=== PATIENT | female | born 1965 | race Caucasian/White ===

== ENCOUNTER 2016-10-10 05:59 | Inpatient (IN) | payer OTHER ==
[2016-09-24 08:59] VITALS: BMI 24.0
--- NOTE | 2016-09-24 09:25 | PAT Medication Instructions ---
Service Date Sep 24, 2016. Current Home Medication List Cholecalciferol (Vitamin D), 1,000 INTER.UNIT PO QPM Levothyroxine Sodium (Synthroid), 125 MCG PO QAM Medication Instructions For Your Scheduled Surgery - Take the following medications the morning of surgery with a sip of water: Levothyroxine Sodium (Synthroid), 125 MCG PO QAM - Take the following medications as scheduled the night before surgery: Cholecalciferol (Vitamin D), 1,000 INTER.UNIT PO QPM If you have any questions please call us at [phone] or [phone] ( Kimmie) or [phone]
[2016-09-24 09:52] LABS: BASO % 0.3 %; BASO ABS # 0.03 K/uL (0-0.2); COMPLETE YES; EOS % 0.5 %; IG% 0.2 %; LYMPH % 21.6 %; LYMPH ABS # 2.13 K/uL (1.2-3.4); MEAN CELL VOLUME 94.2 fL (80-100); MEAN CORPUSCULAR HEMOGLOBIN 32.8 pg (25-34); MEAN CORPUSCULAR HGB CONC 34.8 g/dl (32-36); MEAN PLATELET VOLUME 10.5 fL (7.4-10.4); MONO % 7.1 %; NEUT % 70.3 %; PLATELET COUNT 258 K/uL (130-400); RED BLOOD COUNT 4.67 M/uL (4.2-5.4); WHITE BLOOD COUNT 9.86 K/uL (4.8-10.8)
[2016-09-24 09:56] LABS: URINE APPEARANCE CLEAR (CLEAR); URINE BILIRUBIN NEG (NEG); URINE COLOR YELLOW; URINE NITRITE NEG (NEG); URINE PH 5.5 (4.5-7.5); URINE SPECIFIC GRAVITY 1.008 (1.000-1.030); UROBILINOGEN NEG (NEG)
[2016-09-24 10:25] LABS: MANUAL MICROSCOPIC REQUIRED? NO; REVIEW REQ? NO
[2016-09-24 10:31] LABS: BUN/CREATININE RATIO 18.3 (10-20); POTASSIUM 4.6 mmol/L (3.5-5.1)
[2016-09-24 10:35] LABS: CALCIUM 9.5 mg/dl (8.5-10.1)
--- NOTE | 2016-09-24 10:42 | DIAGNOSTIC IMAGING REPORT ---
CHEST PREADMISSION(PA/LAT) CLINICAL HISTORY: Preoperative evaluation. COMPARISON STUDY: Chest radiograph August 15, 2014. FINDINGS: There are cholecystectomy clips. No pneumothorax or pleural effusion is present. Cardiac size is normal. Mediastinal contours are normal. There is no evidence of pulmonary edema. No consolidation is present. IMPRESSION: No acute cardiopulmonary findings. Electronically signed by: Bennett Mckinley M.D. 09/24/2016 10:39 AM Dictated Date/Time: 09/24/2016 10:39 AM
[~2016-10-10] VITALS: Ht 160 cm; Wt 62.4 kg
[2016-10-10] VITALS (17 sets, daily range): BP systolic 108–129; BP diastolic 46–78; PULSE 48–74; TEMP 36.5–36.7; O2SAT 96–100; Ht 160 cm; Wt 62.4 kg
[~2016-10-10 05:59] MED LIST: CHOL100010 PO; SYN125 PO
[2016-10-10] MEDS ORDERED: CEFAZOLIN 1000MG/55 ML D5W IV SCH (06:00)
[2016-10-10] MEDS ORDERED: LACTATED RINGER'S 1000ML 1,000 ML IV SCH ×2 (06:00)
[2016-10-10] MEDS ORDERED: FENTANYL CITRATE INJ 50 MCG/1 ML 2 ML VIAL ONE ×2 (06:40→07:56)
[2016-10-10] MEDS ORDERED: MIDAZOLAM HCL 1 MG/ML 2ML VIAL ONE (06:40)
[2016-10-10] MEDS ORDERED: BACITRACIN 50000 UNIT VIAL ONE (06:54)
[2016-10-10] MEDS ORDERED: SODIUM CHLORIDE 0.9% PF 50 ML VIAL ONE (06:54)
--- NOTE | 2016-10-10 07:25 | History & Physical Bridge Note ---
H&P Re-Evaluation Bridge Note: I have examined the patient, reviewed the History & Physical and in the interval since the performance of the History & Physical I have noted the following changes of clinical significance: No changes noted
--- NOTE | 2016-10-10 07:27 | History and Physical ---
History & Physical Date October 10, 2016. Chief Complaint neck and arm pain History of Present Illness The patient is a 51 year old female with complaints of Past Medical/Surgical History Medical Problems: (1) Kidney stone (2) Thyroid disorder (3) Vertigo Additional History Hepatic Disease: No Endocrine Disorder: No Kidney Disease: No Hypertension: No Heart Disease: No Bleeding Tendencies: No Infectious Diseases: No Allergies Coded Allergies: Codeine (Unverified Allergy, Unknown, NAUSEA AND VOMITING, 10/10/16) Sulfa Antibiotics (Unverified Allergy, Unknown, SKIN CRAWLS, 10/10/16) Home Medications Scheduled Cholecalciferol (Vitamin D), 1,000 INTER.UNIT PO QPM Levothyroxine Sodium (Synthroid), 125 MCG PO QAM Physical Examination Skin: warm/dry, no rash Eyes: normal inspection, EOMI, sclerae normal ENT: normal ENT inspection, pharynx normal Head: normocephalic, atraumatic Neck: supple, no adenopathy, trachea midline Respiratory/Chest: lungs clear, normal breath sounds, no respiratory distress Cardiovascular: regular rate, rhythm, no edema, no murmur Abdomen / GI: normal bowel sounds, non tender Back: normal inspection Extremities: normal inspection, normal range of motion Neurologic/Psych: no motor/sensory deficits, alert, normal reflexes, oriented x 3 Diagnosis cervical stenosis with radiculopathy Plan of Treatment anterior discectomy and fusion C6-7
[2016-10-10] MEDS ORDERED: HYDROmorphone INJ 2 MG/ML SYR/VIAL ONE (07:57)
[2016-10-10] MEDS ORDERED: HYDROmorphone INJ 1 MG/ML SYR IV PRN ×2 (08:15→08:45)
[2016-10-10] MEDS ORDERED: ONDANSETRON INJ 2 MG/ML 2 ML VIAL IV PRN ×2 (08:15→08:45)
[2016-10-10] MEDS ORDERED: FENTANYL CITRATE INJ 50 MCG/1 ML 2 ML VIAL IV PRN (08:15)
[2016-10-10] MEDS ORDERED: MEPERIDINE HCL 25 MG/ML CARP IV PRN (08:15)
[2016-10-10] MEDS ORDERED: ATROPINE SULFATE 0.1 MG/ML 5ML SYR IV PRN (08:15)
[2016-10-10] MEDS ORDERED: EpHEDrine SULFATE INJ 50 MG/ML AMP IV PRN (08:15)
[2016-10-10] MEDS ORDERED: LABETALOL HCL IV 5 MG/ML 20ML IV PRN (08:15)
[2016-10-10] MEDS ORDERED: DEXAMETHASONE SOD INJ 4 MG/ML VIAL ONE (08:32)
[2016-10-10] MEDS ORDERED: LIDOCAINE HCL 2% 2 ML VIAL (20MG/ML) ONE (08:32)
[2016-10-10] MEDS ORDERED: PROPOFOL IV EMULSION 10 MG/ML 20 ML VIAL IV ONE (08:32)
[2016-10-10] MEDS ORDERED: NEOSTIGMINE METHYLSULFATE 1 MG/ML 10ML VIAL ONE (08:32)
[2016-10-10] MEDS ORDERED: ROCURONIUM BROMIDE 10 MG/ML 5 ML VIAL ONE (08:32)
[2016-10-10] MEDS ORDERED: ONDANSETRON INJ 2 MG/ML 2 ML VIAL ONE (08:32)
[2016-10-10] MEDS ORDERED: EpHEDrine SULFATE 50MG/5ML SYR ONE (08:32)
[2016-10-10] MEDS ORDERED: GLYCOPYRROLATE INJ 0.2 MG/ML VIAL ONE (08:32)
[2016-10-10] MEDS ORDERED: FLOSEAL HEMOSTATIC MATRIX 5ML TOP ONE (08:37)
--- NOTE | 2016-10-10 08:42 | [facility] Post Operative Brief Note ---
Immediate Operative Summary Operative Date October 10, 2016. Pre-Operative Diagnosis cervical stenosis with radiculopathy Post-Operative Diagnosis cervical stenosis with radiculopathy Procedure(s) Performed C6-C7 Anterior Cervical Discectomy and Fusion; Removal of Intervertebral Disc / Decompression; Placement of Prosthetic Spacer / Allograft, Anterior Plate and Screw Fixation Surgeon Dr. Darrell Sarmiento Product Safety Engineer Surgeon(s) Humberto Dunbar PA-C Estimated Blood Loss 5ML Findings stenosis Specimens None
[2016-10-10] MEDS ORDERED: MAGNESIUM HYDROXIDE SUSP 30 ML UDC PO PRN (08:45)
[2016-10-10] MEDS ORDERED: DiphenhydrAMINE HCL 50 MG/ML VIAL IV PRN (08:45)
[2016-10-10] MEDS ORDERED: OXYCODONE HCL IR 5 MG TAB (IMMEDIATE RELEASE) PO PRN (08:45)
[2016-10-10] MEDS ORDERED: LORAZEPAM INJ 0.5 MG in SYRINGE 0.75 ML IV PRN (08:45)
[2016-10-10] MEDS ORDERED: DO NOT ADMINISTER FLU VACCINE PRN ×3 (08:45)
[2016-10-10] MEDS ORDERED: ACETAMINOPHEN IV 1,000 MG in EMPTY BAG 0 ML IV PRN (08:45)
[2016-10-10] MEDS ORDERED: NALOXONE HCL 0.4 MG/1 ML VIAL/CARP IV PRN (08:45)
[2016-10-10] MEDS ORDERED: RACEPINEPHRINE 2.25% NEBU SOLN 0.5 ML VIAL INH PRN (08:45)
[2016-10-10] MEDS ORDERED: DO NOT ADMINISTER PNEUMOCOCCAL VACCINE PRN ×2 (08:45)
[2016-10-10] MEDS ORDERED: DEXAMETHASONE INJ 8 MG in SYRINGE 0 ML IV PRN (08:45)
[2016-10-10] MEDS ORDERED: LORAZEPAM 0.5 MG TAB PO PRN (08:45)
--- NOTE | 2016-10-10 09:38 | Anesthesiology Progress Note ---
Anesthesia Post Op Note Date & Time October 10, 2016 at 09:37 Vital Signs Pain Intensity: 0 Vital Signs Past 12 Hours Date Time Temp Pulse Resp B/P Pulse Ox O2 Delivery O2 Flow Rate FiO2 10/10/16 09:30 68 14 118/63 100 Nasal Cannula 3 10/10/16 09:20 53 14 112/62 100 Mask 5 10/10/16 09:10 54 14 111/60 100 Mask 5 10/10/16 09:00 68 14 124/62 100 Mask 5 10/10/16 08:52 36.4 77 14 108/63 98 Mask 5 10/10/16 06:25 36.6 62 18 124/46 97 Room Air
--- NOTE | 2016-10-10 10:31 | OPERATIVE REPORT ---
DATE OF OPERATION: 10/10/2016 PREOPERATIVE DIAGNOSES: Cervical spinal stenosis, herniated nucleus pulposus, C6-C7. POSTOPERATIVE DIAGNOSES: Same. PROCEDURES PERFORMED: 1. Anterior cervical discectomy, bilateral foraminotomy C6-C7. 2. Anterior cervical arthrodesis, C6-C7. 3. Anterior cervical placement of cortical allograft filled with Progenix 8 mm in height at C6-C7. 4. Application of Gould plate and screws across C6-C7. SURGEON: Dr. Darrell Sarmiento. X RAY EQUIPMENT TESTER: SUSANNE Galeano. Due to the complex nature of the procedure, the entire surgery was performed with the orthodontic technician assistant of SUSANNE Galeano.? The library serials assistant, under direct supervision, was involved in the actual performance of all aspects of the surgical procedure including hemostasis, tissue retraction and incision, instrument management, patient positioning, and wound closure. ANESTHESIA: General. DISPOSITION: The patient awakened and taken to PACU in stable condition. HISTORY OF PATIENT'S PROBLEMS: This is a 51-year-old female who presents with above-mentioned diagnosis. After failing an extensive course of nonoperative care, elected to undergo the above-mentioned procedure. Risks, benefits, pros, cons, and alternatives were outlined in detail preoperatively. DESCRIPTION OF PROCEDURE: The patient was met with preoperatively, the case discussed and all questions were addressed. At that point the patient was taken back to operative suite and after undergoing successful general intubation by the department of anesthesia was placed in the supine position on Spenser table with head in the Andino cloth bale header. All bony prominences were well padded and the eyes were inspected to ensure there was no external pressure placed upon them. At this point the anterior cervical spine was prepped and draped in normal sterile fashion. With the assistance of fluoroscopy, we identified the C6-C7 disc space and transverse incision was placed along the right anterior aspect of the cervical spine overlying this region. Sharp dissection with the assistance of bipolar electrocautery performed down to and exposing the anterior cervical spine at C6-C7. We verified our position with fluoroscopy. A self-retainer was placed. A complete discectomy was then performed out to the uncovertebral joints bilaterally including removal of all posterior annular fibers and longitudinal ligament and bilateral foraminotomies for complete decompression. Hawthorne distracting pins were utilized to assist us in our visualization. Endplates were then burred to subcortical bleeding bone and an 8 mm cortical allograft filled with Progenix tapped into position. Distracting apparatus was removed and Gould plate and screws applied with the assistance of fluoroscopy. The incision was then copiously irrigated, explored to ensure there was no damage to surrounding structures or remaining bleeding, 10 round SALEEM drain inserted then closed with 2-0 Vicryl in the fascia, 4-0 Monocryl for final skin closure. Steri-Strips and sterile dressing placed. The patient was awakened and taken to PACU in stable condition. I attest to the content of the Intraoperative Record and any orders documented therein. Any exceptio ns are noted below.
[2016-10-10] MEDS: LACTATED RINGER'S 1000ML 1,000 ML IV SCH ×2 (12:00→23:55)
[2016-10-10] MEDS ORDERED: SCOPOLAMINE 1.5 MG TDSY TD SCH (12:00)
[2016-10-10] MEDS ORDERED: RXC5 PO (14:15)
--- NOTE | 2016-10-10 14:16 | Discharge Instructions ---
Discharge Instructions Date of Service October 10, 2016. Admission Reason for Admission: Cervical Spinal Stenosis Discharge Discharge Diagnosis / Problem: stenosis Discharge Goals Goal(s): Improve function Activity Recommendations Activity Limitations: per Instructions/Follow-up section . Instructions / Follow-Up Instructions / Follow-Up ACTIVITY RECOMMENDATIONS: SELF CARE INSTRUCTIONS AFTER THORACIC/LUMBAR FUSIONS 1. You may walk to your tolerance. It is good exercise for your legs and back. Expect some back and intermittent leg aches and pains. 2. You may perform "counter-top" level activities (make a sandwich, sheyla with a project, etc.). 3. No bending or lifting of more than 10 pounds or back twisting of any nature (roll like a log when turning in bed). 4. You may ride in a car for 20-30 minutes at a time. No driving until after your first visit with your doctor. 5. Frequent changes of position and restricting sitting to 30 minutes at a time will help limit the amount of back spasms and stiffness you may experience. 6. You may discontinue the use of ambulatory aids (cane, crutches, etc.) once your strength and confidence allow. 7. You may check inspector the shower and let water strike your incision when you arrive home at least once daily. Do not take a tub bath, sit in a hot tub or go into a swimming pool until after your first recheck in the office. SPECIAL CARE INSTRUCTIONS: VERY IMPORTANT TO READ AND REVIEW A. Your surgical incision has been closed with a cosmetic suture under the skin that will dissolve in about 6 weeks. In 14 days, you can use a pair of clean scissors and cut the suture that is left outside of the skin at the ends of your incision. 1. The small skin tapes can be removed 7 days after surgery if they have not fallen off by that point. 2. You may keep the wound open to air as much as possible to promote healing after post-op day number 5 unless told otherwise by your doctor. 3. If you think the wound looks like it is becoming infected (redness or worsening drainage) and/or you are experiencing fever, chill or worsening back pain and muscle spasms, contact the office so that we may evaluate you as soon as possible. B. Complications are uncommon, but please contact us if you have any signs or symptoms of: 1. wound infection (fever higher than 102.5 degrees F, redness, separation of wound, drainage, or increasing pain from the incision) 2. blood clots in legs (pain, swelling, redness and warmth in legs) 3. urinary tract infection (fever higher than 102.5 degrees F, burning upon urination or increased frequency of urination) 4. nerve problems (inability to walk on your toes or heels, numbness, loss of bowel or bladder control) 5. any other symptoms that concern you C. Please call the office at if you have any concerns or questions about your operation or recovery. D. No smoking! Smoking drastically decreases the chance of a solid fusion. E. Do not take any anti-inflammatory medications (Indocin, Advil, Motrin, Aspirin, Naprosyn, etc.) as these may inhibit the chance of a solid fusion. Tylenol is okay to take for pain. MANAGING PAIN AFTER SPINAL SURGERY 1. Narcotic medication is intended for short-term use and will be provided for surgical pain. Surgical pain usually lasts for a period of 4-6 weeks. Narcotic medication includes Percocet, Vicodin, Darvocet, Tylenol #3 or Lortab. 2. Longer-term pain is more appropriately treated with non-narcotic medication such as Tylenol ES. 3. Muscle spasm is not appropriately treated with narcotics. Muscle relaxers such as Soma, Flexeril or Skelaxin can be used along with Tylenol ES. 4. Remember that we all live with some "aches and pains". This is not unusual or uncommon after an injury or as we get older. a. Back pain is expected and may include muscle spasms for 4 to 6 weeks after surgery. The pain should gradually improve. If the pain worsens for no apparent reason, please contact the office. b. Intermittent leg pain may also be experienced and should not be concerned about unless it worsens for no apparent reason. If so, please contact the office. 5. We will provide appropriate medication within the normal guidelines of their prescribed use. We will also be very cautious and aware of potential abuse and extended duration of patients' medication needs. a. Pain medications are for your comfort and to assist with sleep and rest so that the tissue can heal. They are not provided in order to return to normal activity and should not be used through the day. To do so or worsening pain at night can result from ongoing tissue damage and development of tolerance to the prescribed medicine. 6. Please allow 2-3 days to process refills. Prescriptions will not be mailed but must be picked up at the office. FOLLOW UP VISIT: Keep your scheduled follow-up appointment. Any questions, please call the office at . Current Hospital Diet Patient's current hospital diet: Clear Liquid Diet Discharge Diet Recommended Diet: Regular Diet Procedures Procedures Performed: C6-C7 Anterior Cervical Discectomy and Fusion; Removal of Intervertebral Disc / Decompression; Placement of Prosthetic Spacer / Allograft, Anterior Plate and Screw Fixation Pending Studies Studies pending at discharge: no Medical Emergencies . Who to Call and When: Medical Emergencies: If at any time you feel your situation is an emergency, please call 911 immediately. . Non-Emergent Contact Non-Emergency issues call your: Primary Care Provider . "Provider Documentation" section prepared by Darrell Sarmiento. . VTE Core Measure Inpt VTE Proph given/why not?: Marquis Mullen, SCD's
--- NOTE | 2016-10-10 14:19 | DIAGNOSTIC IMAGING REPORT ---
Cervical spine CERVICAL 2 OR 3 VIEWS CLINICAL HISTORY: C6-C7 ACDF fusion TECHNIQUE: Image intensifier COMPARISON STUDY: None FINDINGS: Findings consistent with an anterior cervical fusion of the C6-C7 level. Disc spacer is present. Alignment is anatomic. IMPRESSION: Anatomic alignment status post anterior C6-C7 fusion Electronically signed by: Tahir Donis M.D. 10/10/2016 2:17 PM Dictated Date/Time: 10/10/2016 2:16 PM
[2016-10-10] MEDS: CEFAZOLIN IV 1,000 MG in DEXTROSE 5% 50ML 50 ML IV SCH ×2 (15:36→23:54)
[2016-10-10] MEDS: CHECK SCOPOLAMINE PATCH PLACEMENT SCH ×2 (15:37→23:54)
[2016-10-10] MEDS: DEXAMETHASONE INJ 6 MG in SYRINGE 0 ML IV SCH ×2 (15:37→23:54)
[2016-10-10] MEDS: DOCUSATE SODIUM 100 MG CAP PO SCH (20:20)
[2016-10-11] VITALS (7 sets, daily range): BP systolic 109–132; BP diastolic 53–78; PULSE 46–57; TEMP 36.5–36.7; O2SAT 96–99
[2016-10-11] MEDS ORDERED: LEVOTHYROXINE 125 MCG TAB PO SCH (06:00)
[2016-10-11] MEDS: CEFAZOLIN IV 1,000 MG in DEXTROSE 5% 50ML 50 ML IV SCH (08:10)
[2016-10-11] MEDS: DEXAMETHASONE INJ 6 MG in SYRINGE 0 ML IV SCH (08:10)
[2016-10-11] MEDS: CHECK SCOPOLAMINE PATCH PLACEMENT SCH (08:11)
[2016-10-11] MEDS: DOCUSATE SODIUM 100 MG CAP PO SCH (08:12)
--- NOTE | 2016-10-11 16:07 | DISCHARGE SUMMARY ---
PRINCIPAL DIAGNOSIS: Cervical spinal stenosis. HOSPITAL COURSE FOLLOWS: On October 10, the patient underwent anterior cervical discectomy and fusion C6-7, tolerated this well and taken to the orthopedic floor postoperatively. Postop day #1, she was up and ambulatory, arm symptoms were improved, swallowing well, no hoarseness. Pain controlled. Subsequently discharged home. Discharge orders and instructions found on the chart for further review.
[2016-10-12] MEDS ORDERED: BISACODYL 5 MG TABEC PO PRN (06:00)
[2016-10-12] MEDS ORDERED: BISACODYL 10 MG SUPP PR PRN (06:00)
[2016-10-12] MEDS ORDERED: POLYETHYLENE (MIRALAX) 17 GM PACK PO SCH (09:00)
== END 2016-10-11 10:39 | disposition home or self-care (01) | DRG 473 ==
LOC: ENRESERVDT → ENRESERVTM → C.ACU 05:59 → C.3E 07:30
PROVIDERS: ADMIT Orthopaedic Surgery Orthopaedic Surgery of the Spine; ATTEND Orthopaedic Surgery Orthopaedic Surgery of the Spine
PROC: 0RT30ZZ Resection of Cervical Vertebral Disc, Open Approach (ICD-10-PCS; principal; 2016-10-10 07:45)
PROC: 0RG10A0 Fusion of Cervical Vertebral Joint with Interbody Fusion Device, Anterior Approach, Anterior Column, Open Approach (ICD-10-PCS; principal; 2016-10-10 07:45)
DX: M48.02 Spinal stenosis, cervical region (principal); M50.20 Other cervical disc displacement, unspecified cervical region; M99.71 Connective tissue and disc stenosis of intervertebral foramina of cervical region

== ENCOUNTER → 2017-02-16 | Outpatient (CLI) | payer OTHER ==
[~2017-02-16] MED LIST changes: +RXC5 PO
[2017-02-16 13:04] LABS: BLOOD UREA NITROGEN 15 mg/dl (7-18); BUN/CREATININE RATIO 12.8 (10-20); CARBON DIOXIDE 25 mmol/L (21-32); CHLORIDE 110 mmol/L (98-107); GLUCOSE 93 mg/dl (70-99); POTASSIUM 4.2 mmol/L (3.5-5.1); SODIUM 142 mmol/L (136-145)
[2017-02-16 13:14] LABS: CHOLESTEROL 124 mg/dl (0-200); CHOLESTEROL/HDL RATIO 2.4; HDL CHOLESTEROL 52 mg/dl; LDL CHOLESTEROL CALCULATED 57 mg/dl; THYROID STIMULATING HORMONE 0.786 uIu/ml (0.300-4.500); TRIGLYCERIDES 77 mg/dl (0-150); VERY LOW DENSITY LIPOPROT CALC 15 mg/dl
== END | disposition home or self-care (01) ==
LOC: C.LABPVFM 09:34
PROVIDERS: ATTEND Nurse Practitioner
DX: E03.9 Hypothyroidism, unspecified (principal); Z13.220 Encounter for screening for lipoid disorders

== ENCOUNTER → 2017-09-22 | Outpatient (CLI) | payer OTHER | END | disposition home or self-care (01) | LOC: C.PAPS 09:16 | PROVIDERS: ATTEND Nurse Practitioner | DX: Z01.419 Encounter for gynecological examination (general) (routine) without abnormal findings (principal) ==